=== PATIENT | female | born 1960 | race Caucasian/White ===

== ENCOUNTER 2020-09-16 14:54 | Emergency (ER) | payer MEDICARE, SELFPAY ==
[2020-09-16 14:59] VITALS: BP 183/96; PULSE 88; RESP 18; TEMP 36.8; O2SAT 97; BMI 24.0
--- NOTE | 2020-09-16 15:07 | ED_ITS ---
HPI - General Adult General: Chief complaint: General Medical Stated complaint: neck pain/head pain Time Seen by Provider: 09/16/20 15:06 History of Present Illness: HPI narrative: Patient is a 59-year-old female comes to the ED with generalized body pain. Patient says that she has been diagnosed with hypertension, degenerative disc disease and multiple sclerosis. Patient states she just recently moved here and does not have a primary care doctor established yet. Patient is out of her hypertensive medications and needs referral to primary care doctor. She is also stating she has generalized body pain which she has had chronically in the past. She says that this is not like other time she has had body pain. Pain is rated 10 out of 10. She says this is like her past MS attacks. Also complaining of burning when she urinates increased frequency and urgency as well. Associated symptoms: Deny chest pain, dyspnea, headache(s), nausea, rash, palpitations or vomiting Review of Systems Narrative: Generalized body pain and high blood pressure. Const: Denies: fever(s), chills or fatigue Eyes: Denies: change in vision or eye discomfort ENMT: Denies: throat pain, odynophagia, nasal discharge or nasal congestion Card: Denies: chest pain, palpitations, edema, swelling of feet/ankles, dyspnea on exertion or orthopnea Resp: Denies: dyspnea, productive cough or non-productive cough GI: Denies: abdominal pain, nausea, vomiting, diarrhea, constipation or hematochezia : Reports: dysuria, urinary frequency (increased) and urinary urgency (increased); Denies: flank pain or hematuria Musc: Denies: neck pain, back pain or extremity swelling Skin/Breast: Denies: rash or new lesions Neuro: Denies: headache(s), numbness in extremities or weakness in extremities Physical Exam Const: COMMON NORMALS: no acute distress, patient oriented x3 and alert GENERAL APPEARANCE: cooperative and comfortable HENMT: COMMON NORMALS: normocephalic HEAD & SCALP: normocephalic MOUTH: Normal oral and palatal mucosa present THROAT: posterior oropharynx normal and uvula midline Neck/C-Spine: COMMON NORMALS: supple GENERAL: Yes normal visual inspection Resp: COMMON NORMALS: normal respiratory effort, No retractions, No use of accessory muscles and clear to auscultation bilaterally AUSCULTATION: clear to auscultation bilaterally Cardio: COMMON NORMALS: regular rate, regular rhythm, S1 normal heart sound present, S2 normal heart sound present, No gallops present (Cardio), No clicks present (Cardio), No murmurs present (Cardio) and Peripheral pulses 2+ throughout RATE: regular rate RHYTHM: regular rhythm HEART SOUNDS: S1 normal heart sound present and S2 normal heart sound present PERIPHERAL PULSES: Peripheral pulses 2+ throughout GI: COMMON NORMALS: Normal to inspection, nondistended, normoactive bowel sounds present, Soft to palpation, non-tender and no masses PALPATION: Yes Soft to palpation : COMMON NORMALS: Yes no CVA tenderness BLADDER/KIDNEY EXAM: Yes no CVA tenderness Back/Pelvis: COMMON NORMALS: no CVA tenderness Neuro: COMMON NORMALS: patient oriented x3, CN's II-XII intact bilaterally, moves all extremities, no focal motor deficits and no sensory deficits noted SENSORIUM/ORIENTATION: Yes alert COORDINATION/BALANCE: [id number] test normal SPEECH: speech normal SENSORY EXAM: Yes extremities (sensation intact) MOTOR EXAM: 5/5 motor strength present throughout COORDINATION: tflwvo-[id number] test normal Skin: GENERAL SKIN EXAM: dry skin Course 2 Vital Signs: Vital signs: Vital Signs Temperature 98.2 F 09/16/20 14:59 Pulse Rate 106 H 09/16/20 15:10 Respiratory Rate 18 09/16/20 15:10 Blood Pressure 204/122 09/16/20 15:10 Pulse Oximetry 96 09/16/20 15:10 BP when I was in the room at 1545---164/108 @1634--BP 144/98 MDM - General Adult MDM Narrative: Medical decision making narrative: Patient is a 59-year-old female comes to the ED with generalized body aches. Patient also complains of having UTI symptoms of burning frequency and urgency. Patient has a history of MS and says that this has like one of her past acute episodes. She is currently new to the area and does not have a primary care physician. I placed an order with case management to have patient be referred to a PCP to establish care. She says she was previously on multiple blood pressure medications but was unsure what their names were. She believes she was on lisinopril but is not sure of any of the other blood pressure meds she was on. Patient's blood pressure at the highest point was 204/122 and then went down to 144/98 as pain improved. Neuro exam was normal and showed no neurological deficits. CT of head was done and showed no acute findings. CBC was unremarkable and UA showed elevated white blood cells, red blood cells and bacteria. Given her urinary symptoms and urinalysis findings patient diagnosed with UTI. CMP was unremarkable and her creatinine was 0.6,so I will start patient on lisinopril- hydrochlorothiazide tabs for blood pressure. Patient diagnosed with exacerbation of MS, UTI and hypertensive urgency. She sent home with a prescription for Medrol Dosepak, cefdinir and lisinopril hydrochlorothiazide. She was told to go to her appointment with PCP once case management calls her to set that up. Return to ED precautions given. Patient instructed with plan. Lab Data: Attestation: I reviewed the patient's lab results. Labs: Lab Results 09/16/20 09/16/20 09/16/20 Range/Units 15:35 16:05 16:05 WBC 6.2 (4.0-10.0) 10^3/ uL RBC 4.62 (4.1-5.3) 10^6/u L Hgb 13.0 (11.5-15.3) g/dL Hct 40.3 (37.0-47.0) % MCV 87.2 (81-99) fL MCH 28.1 (28.0-34.0) pg MCHC 32.3 (30.0-36.0) g/dL RDW 13.2 (12.1-15.1) % Plt Count 291 (130-400) 10^3/c mm MPV 9.5 (7.4-10.4) fL Neut % (Auto) 57.0 % Lymph % (Auto) 30.0 % [place] % (Auto) 8.8 % Eos % (Auto) 2.7 % Baso % (Auto) 1.3 % Neut # (Auto) 3.55 (1.8-7.7) 10^3/u L Lymph # (Auto) 1.9 (0.8-4.8) 10^3/u L [place] # (Auto) 0.6 (0.2-0.9) 10^3/u L Eos # (Auto) 0.2 (0.0-0.8) 10^3/u L Baso # (Auto) 0.1 (0.0-0.1) 10^3/u L Nucleated RBC % (a uto) 0 % Nucleated RBCs # 0.0 /100WBC Sodium 138 (136-145) mmol/L Potassium 3.8 (3.5-5.1) mmol/L Chloride 105 (98-107) mmol/L Carbon Dioxide 23 (22-29) mmol/L Anion Gap 13.8 (5-19) BUN 13 (6-20) mg/dL Creatinine 0.6 (0.5-0.9) mg/dL GFR Calculation 103.0 (90-130) mL/min Glucose 113 (65-115) mg/dL Calculated Osmolal ity 287 (285-295) mOsm/k g Calcium 9.5 (8.5-10.5) mg/dL Total Bilirubin 0.3 (0.15-1.2) mg/dL AST 29 (0-32) U/L Alkaline Phosphata se 101 (35-105) IU/L Total Protein 7.2 (6.6-8.7) g/dL Albumin 4.3 (3.5-5.2) g/dL Globulin 2.9 (1.3-4.6) g/dL Urine Color Yellow (Yellow) Urine Appearance Hazy A (CLEAR) Urine pH 5 (5-7) Ur Specific Gravit y 1.020 (1.005-1.030) Urine Protein Neg (Negative) Urine Glucose (UA) Norm (Normal) Urine Ketones Negative (Negative) Urine Blood 2+ H (Negative) Urine Nitrate Negative (Negative) Urine Bilirubin Neg (Negative) Urine Urobilinogen Norm (Negative) mg/dL Ur Leukocyte Ivana ase 2+ H (Negative) Urine RBC 10-15 H (0-2) /hpf Urine WBC 15-25 H (0-5) /hpf Ur Squamous Epith Cells 15-25 H (0-5) /hpf Amorphous Sediment Not Reportable Urine Bacteria 2+ H (NONE) /hpf Urine Mucus 2+ /hpf Imaging Data^: CT Head: Attestation: I personally reviewed and interpreted this imaging study as follows: Radiologist's impression: [address] [address] [address] Scan Report Signed Patient: RenardHome Unit #: [id number] : 1960 Age/Sex: 59 / F ADM Date: 09/16/20 Loc: ER Room/Bed: Attending Dr: Ordering Provider/Ordering MD: César Cleveland Date of Service: 09/16/20 Procedure(s): CT head wo con* [id number] Accession Number(s): [id number] Report Number: [id number] PROCEDURE INFORMATION: Exam: CT Head Without Contrast Exam date and time: 09/16/2020 3:24 PM Age: 59 years old Clinical indication: Pain; Headache; Vascular; Patient HX: C/O DEL REAL w HTN - non compliant w meds; Additional info: Hypertensive urgency TECHNIQUE: Imaging protocol: Computed tomography of the head without contrast. Radiation optimization: All CT scans at this facility use at least one of these dose optimization techniques: automated exposure control; mA and/or kV adjustment per patient size (includes targeted exams where dose is matched to clinical indication); or iterative reconstruction. COMPARISON: No relevant prior studies available. RADIATION DOSE METRICS: Total DLP (mGy-cm): 694.4 FINDINGS: Brain: No hemorrhage. Unremarkable white matter. No mass effect. Cerebral ventricles: No ventriculomegaly. Bones/joints: Unremarkable. No acute fracture. Paranasal sinuses: No acute findings, minimal ethmoid inflammatory change. Mastoid air cells: Unremarkable. Soft tissues: Unremarkable. CT/CT head wo con* [id number] IMPRESSION: No acute intracranial abnormality. Radiation Dose CTDIVOL = (mGy): DLP = 694.4 (mGy-cm) Dictated By: Medardo Brown MD Signed By: Medardo Brown MD Signed Date/Time: 09/16/201558 DD/ 58 Discharge Plan Discharge Patient Disposition: Home Clinical Impression: Multiple sclerosis exacerbation, Acute UTI (urinary tract infection), Hypertensive urgency Condition: Stable Prescriptions: New Medrol (Doug) 4 mg tablets,dose pack See Rx Instructions .ROUTE .COMPLEX Qty: 21 RF: 0 cefdinir 300 mg capsule 300 mg PO BID 10 Days Qty: 20 RF: 0 lisinopril-hydrochlorothiazide 20-12.5 mg tablet 1 tab PO DAILY Qty: 30 RF: 0 Discharge Orders: Discharge Order (Routine); Ordered 09/16/20 Ordered By: César Cleveland Discharge Diet: Regular Discharge Activity: Resume usual activity Patient Instructions: Multiple Sclerosis (GEN) Activity Restrictions/Additional Instructions: Case management will be contacting you in the next several days to set up an appointment with primary care physician. Get blood pressure rechecked and take medications as prescribed. Return to the ER or your medical provider if condition worsens. Please read and understand discharge instructions. If any questions, please ask. Coding Level of Care Code ED Nondestructive Tester for Chg Fwd Exam Comprehensive
[2020-09-16 15:10] VITALS: BP 204/122; PULSE 106; RESP 18; O2SAT 96
--- NOTE | 2020-09-16 15:18 | CTR_ITS ---
PROCEDURE INFORMATION: Exam: CT Head Without Contrast Exam date and time: 09/16/2020 3:24 PM Age: 59 years old Clinical indication: Pain; Headache; Vascular; Patient HX: C/O DEL REAL w HTN - non compliant w meds; Additional info: Hypertensive urgency TECHNIQUE: Imaging protocol: Computed tomography of the head without contrast. Radiation optimization: All CT scans at this facility use at least one of these dose optimization techniques: automated exposure control; mA and/or kV adjustment per patient size (includes targeted exams where dose is matched to clinical indication); or iterative reconstruction. COMPARISON: No relevant prior studies available. RADIATION DOSE METRICS: Total DLP (mGy-cm): 694.4 FINDINGS: Brain: No hemorrhage. Unremarkable white matter. No mass effect. Cerebral ventricles: No ventriculomegaly. Bones/joints: Unremarkable. No acute fracture. Paranasal sinuses: No acute findings, minimal ethmoid inflammatory change. Mastoid air cells: Unremarkable. Soft tissues: Unremarkable. CT/CT head wo con* [id number] IMPRESSION: No acute intracranial abnormality. Radiation Dose CTDIVOL = (mGy): DLP = 694.4 (mGy-cm)
[2020-09-16 15:51] LABS: Bilirubin Urine Neg (Negative); Blood Urine 2+ (Negative); Glucose Urine UA Norm (Normal); Ketones Urine Negative (Negative); Leukocyte Esterase Urine 2+ (Negative); Nitrate Urine Negative (Negative); Protein Urine Neg (Negative); Urine Appearance Hazy (CLEAR); Urine Color Yellow (Yellow); Urobilinogen Urine Norm (Negative); pH Urine 5 (5-7)
[2020-09-16 15:53] LABS: Add Urine Culture? No; Bacteria Urine 2+ /hpf; Mucus Urine 2+ /hpf; Squamous Epithelial Cell Urine 15-25 /hpf (0-5); WBC Urine 15-25 /hpf (0-5)
[2020-09-16 16:17] LABS: Basophils # 0.1 10^3/uL (0.0-0.1); Basophils % 1.3 %; Eosinophils # 0.2 10^3/uL (0.0-0.8); Eosinophils % 2.7 %; Hematocrit 40.3 % (37.0-47.0); Lymphocytes # 1.9 10^3/uL (0.8-4.8); Mean Corpuscular HGB Conc 32.3 g/dL (30.0-36.0); Mean Corpuscular Hemoglobin 28.1 pg (28.0-34.0); Mean Corpuscular Volume 87.2 fL (81-99); Mean Platelet Volume 9.5 fL (7.4-10.4); Monocytes # 0.6 10^3/uL (0.2-0.9); Monocytes % 8.8 %; Neutrophils # 3.55 10^3/uL (1.8-7.7); Nucleated Red Blood Cells % 0 %; Platelet Count 291 10^3/cmm (130-400); Red Blood Count 4.62 10^6/uL (4.1-5.3); Red Cell Distribution Width 13.2 % (12.1-15.1); White Blood Count 6.2 10^3/uL (4.0-10.0)
[2020-09-16] MEDS: HYDROcodone-acetaminophen 7.5-325 mg Tablet 1 TAB PO (16:17)
[2020-09-16 16:37] LABS: Alanine Aminotransferase 38 U/L (0-33); Albumin Level 4.3 g/dL (3.5-5.2); Alkaline Phosphatase 101 IU/L (35-105); Anion Gap 13.8 (5-19); Aspartate Amino Transferase 29 U/L (0-32); Blood Urea Nitrogen 13 mg/dL (6-20); Calcium 9.5 mg/dL (8.5-10.5); Carbon Dioxide 23 mmol/L (22-29); Chloride 105 mmol/L (98-107); Globulin 2.9 g/dL (1.3-4.6); Glucose 113 mg/dL (65-115); Osmolality Calculated 287 mOsm/kg (285-295); Potassium 3.8 mmol/L (3.5-5.1); Sodium 138 mmol/L (136-145); Total Bilirubin 0.3 mg/dL (0.15-1.2); Total Protein 7.2 g/dL (6.6-8.7)
[2020-09-16] MEDS: cefdinir 300 MG CAPSULE PO (16:48)
[2020-09-16 17:05] LABS: C Reactive Protein 1.8 mg/L (0.0-4.9)
== END 2020-09-16 16:55 | disposition home or self-care (01) ==
PROVIDERS: Emergency Provider Physician Assistant
DX: G35 Multiple sclerosis (principal); N39.0 Urinary tract infection, site not specified; I16.0 Hypertensive urgency
CPT/HCPCS: 12345; 70450; 80053; 81001; 85025; 86140; 96374; 96375; 99282; 99283; J2930